=== PATIENT | female | born 1955 | race Caucasian/White ===

== ENCOUNTER 2016-11-22 08:34 | Emergency (ER) | payer BC, MEDICAID ==
[~2016-11-22] VITALS: Ht 154.9 cm; Wt 79.4 kg
[~2016-11-22 08:34] MED LIST: ALDACTONE 25MG25 MG PO; ASPIRIN CHILDRE81 M1 PO; BIOTIN2500 MCG PO; CARVEDILOL 25MG25 MG PO; CARVEDILOL6.25 M1 PO; CENTRUM SILVER1 EACH PO; CLARITIN 10MG T10 MG PO; CRANBERRY200 MG PO; DIGITEK125 MCG PO; FUROSEMIDE 20MG20 MG FT; FUROSEMIDE 20MG20 MG PO; FUROSEMIDE 40MG40 M1 PO; GABAPENTIN100 M1 PO; HYDROCHLOROTHIA25 M1 PO; IMODIUM 2MG. CAP2 MG PO; ISOSORBIDE MONO30 MG PO; JANUMET 50-1,01 EACH PO; LANOXIN 0.120.125 MG PO; LIPITOR10 MG PO; LISINOPRIL 5MG T5 MG PO; LISINOPRIL20 MG PO; LORAZEPAM0.5 MG/TAB FT; LOSARTAN POTASS50 MG PO; MAG-OX 400MG T400 MG PO; MECLIZINE25 MG PO; METOCLOPRAMIDE10 M2 PO; NATURAL FISH1200 MG PO; NITROFURANTOIN100 M4 PO; NITROGLYCERIN0.4 M1 SL; PANTOPRAZOLE SO40 M1 PO; PHENOBARBITAL32.4 M1 PO; POTASSIUM CHLO10 ME3 PO; ROPINIROLE HYDRO2 MG PO; TRAMADOL 50MG T50 M1 PO; XARELTO20 MG PO; ZOFRAN ODT4 MG PO
[2016-11-22 08:51] LABS: LYMPH # 1.6 K/mm3 (0.7-4.5); LYMPH % 18.9 % (10-50.0)
[2016-11-22 08:58] LABS: HEMOGLOBIN 11.7 g/dL (12.2-16.2)
--- NOTE | 2016-11-22 09:02 | Emergency Room Report ---
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 N Clinical Suspician of Infection? N Mental Status: 1 - Regular (Normal Baseline) Sepsis Risk:Severe Sepsis Risk Have you (or family members/close friends) recently traveled outside the [place]? N If Yes, where/when: Have you had exposure to infectious disease within the past month? TB? Other? Specify: Patient with chest pressure for the last five days, radiating to her back, nonexertional. Over the past day she has also had a slightly elevated HR, noting it to be in the low 100's yesterday morning. She was taken off Carvedilol one month ago due to "blood pressure problems". She took her morning medications at 0530 and has had aspirin in the last 24 hours. She had increased SOB last night, and reports increased pedal edema without calf pain. She is on Lasix and Aldactone. She has a hx of Afib and is on Xarelto. No new cough or fever. ALLERGIES Coded Allergies: metoclopramide (From REGLAN) (Mild, 11/22/16) Home Medications Active Scripts Rivaroxaban (Xarelto) 20 MG PO DAILY #30 TAB Ref 2 Prov: 03/18/15 Carvedilol (Carvedilol 25MG) 25 MG PO BID #60 TAB Prov: 11/30/15 Reported Medications ROPINIROLE HCL (Ropinirole) 2 MG PO QHS #30 Pantoprazole Sodium 40 MG PO BID #60 Aspirin 81 MG PO QHS Phenobarbital (Phenobarbital 32.4MG) 1 TAB PO TID #90 TAB Digoxin (Lanoxin 0.125MG) 0.125 MG PO DAILY #30 TAB Sitagliptin Phos/Metformin HCl (Janumet 50-1,000 MG Tablet) 1 TAB PO BID Losartan Potassium (Losartan 50MG) 50 MG PO DAILY #30 TAB Isosorbide Mononitrate (Isosorbide Mononitrate ER) 30 MG PO DAILY Atorvastatin Calcium (Lipitor 10MG) 10 MG PO QHS Loperamide Hcl (Loperamide) 2 MG PO Q6HP PRN DIARRHEA Gabapentin (Gabapentin 100MG) 100 MG PO TID Furosemide (Furosemide) 20 MG FT DAILY POTASSIUM CHL (Potassium Chloride) 10 MEQ PO BID LISINOPRIL (Lisinopril) 5 MG PO DAILY Loratadine (Claritin 10MG) 10 MG PO DAILY OMEGA-3S/DHA/EPA/FISH OIL (Fish Oil 1,200 MG Softgel) 1,200 MG PO BID Multivit-Min/FA/Lycopene/Lut (Centrum Silver Tablet) 1 EACH PO DAILY MAGNESIUM OXIDE (Magnesium Oxide) 250 MG PO BID Biotin 5,000 MCG PO DAILY Nitroglycerin 0.4 MG SL PRN PRN CHEST PAIN #25 History Medical History General CAD? Yes Angina: Yes [place]: No Hypertension? Yes Hyperlipidemia? No CHF? Yes DVT? No PE? No COPD? No Asthma? No Anemia? No GERD? No Gastric ulcers? No GI Bleed? No Hernia? No Thyroid Problems? No Hypothyroidism? No CVA? No Seizures? Yes Diabetes? Yes Insulin Dependent: No Insulin Pump: No Home FSBS? Yes Renal Insuffiency? No End Stage Renal Disease? No UTI? No Stones? No BPH? No GB Disease: No Nephritic Syndrome? No Asplenia? No Hepatitis? No Sickle Cell Disease? No Arthritis? No Migraines? No Cataracts? No Glaucoma? No MRSA? No HIV? No TB? No Anxiety? No Depression? No Cancer? No More? Yes Additional hx: AFIB Immunization Hx Ped.Immunizations UTD Yes DT/Tetanus Unknown Flu 2016-FSN Pneumonia Received In Past Surgical Hx Previous Surgery?Y ADENOID APPY CHOLEY TONSILECTOMY CARDIAC CATH Family History Family Hx Diabetes No CAD Yes Hypertension Yes Hyperlipidemia Yes Cancer No TB No Social History Smoking Hx Smoker: Never Smoker Tobacco: No Type N/A Packs/day N/A Are you/the child exposed to second-hand smoke: No Alcohol Alcohol: No Review of Systems All Other Systems Reviewed and Negative Respiratory see HPI Cardiovascular chest pain Physical Exam Vital Signs Vital Signs Date Time Temp Pulse Resp B/P Pulse O2 O2 Flow FiO2 Ox Delivery Rate 11/22 1004 114 22 149/94 96 11/22 0836 98.3 135 24 153/96 98 5 General Appearance normal appearance, WD/WN, no apparent distress Eye Exam - bilateral eye normal exam, bilateral eye PERRL, bilateral eye EOMI Neck normal inspection, non-tender, supple, full range of motion Respiratory Status Yes: trachea midline, chest symmetrical, non tender chest. No: respiratory distress, tender on palpation, use of accessory muscles, pain on inspiration, pain on expiration, productive cough, non productive cough. Lung Sounds bilateral: normal breath sounds, lungs clear. Cardiovascular normal exam, no gallop, no JVD, no murmur, no rub, normal peripheral pulses (irr irr;Afib on monitor) Peripheral Pulses Pulses normal Yes (irr irr; full) Gastrointestinal normal bowel sounds, normal exam, non tender, soft, no organomegaly, no pulsatile mass, no guarding, no rebound Extremities non-tender, normal range of motion, normal inspection, normal capillary refill, no calf tenderness (mild pedal edema B, nonpitting), neg Chase 's, neg ropiness Strength 5 Upper Ext (L), 5 Upper Ext (R), 5 Lower Ext (L), 5 Lower Ext (R) Neurologic alert, normal exam, no motor/sensory deficits, oriented x 3 (speech clear; no tremor) Glascow Coma Scale Glascow Coma Scale Response Value EYE response: 4 Spontaneously 4 MOTOR response: 6 OBEYS 6 VERBAL response: 5 Oriented & Converses 5 Total 15 Skin intact, normal color, warm/dry Medical Decision Making LABS/Meds/Orders Pt receiving controlled substance in ED? No [place] was queried for this patient? No Results/Orders Laboratory Tests 11/22/16 0840: Sodium 134 L, Potassium 3.4 L, Chloride 94 L, Carbon Dioxide 29, BUN 14, Creatinine 1.0, Estimated Creat Clear 75, Estimated GFR (MDRD) 57 L, Glucose 136 H, Calcium 9.8, Total Bilirubin 0.5, AST 25, ALT 39, Alkaline Phosphatase 145 H, Creatine Kinase 20 L, CK-MB (CK-2) Rel Index 2.5, CK and CKMB Interp < 0.5, Troponin I < 0.02, B-Natriuretic Peptide 308 H, Total Protein 8.2, Albumin 3.7, Globulin 4.5 H, Albumin/Globulin Ratio 0.8 L, WBC 8.4, RBC 3.56 L, Hgb 11.7 L, Hct 34.8 L, MCV 97.8, RDW 14.5, Plt Count 314, MPV 7.4, Gran % 75.1, Gran # 6.3, Lymphocytes % 18.9, Monocytes % 4.8, Eosinophils % 1.0, Basophils % 0.2, Lymphocytes # 1.6, Monocytes # 0.4, Eosinophils # 0.1, Basophils # 0.0, PUBS MCHC 33.7, MCH 32.9 H, Phenobarbital 21.7 Current Medication Orders Sig/Dashawn Start time Last Medication Dose Route Stop Time Status Admin Diltiazem HCl 120 MG ONCE ONE 11/22 1130 AC PO 11/22 1131 Sodium Chloride 10 ML PRN PRN 11/22 0845 AC IV 11/23 0842 Orders Procedure Date/time Status ELECTROCARDIOGRAM REQUEST 11/22 0843 Active IV SALINE LOCK 11/22 0843 Active PHENOBARBITOL 11/22 0843 Complete CBC WITH AUTO DIFF 11/22 0843 Complete CARDIAC ENZYMES 11/22 0843 Complete CHEM 12 PROFILE 11/22 0843 Complete BRAIN NATRIURETIC PEPTIDE 11/22 0843 Complete 12 LEAD EKG-[facility] (INITIAL) 11/22 0840 Active CM/EKG CM/EKG EKG rate, no evid. of ischemic chgs, normal QRS, normal EKG (QTc 525; Afib 100-130's), compared w/(date of old) (10/30/16 old RBBB had QTc 462) XRAY/CT/US XRAY/CT/US XRAY chest Consult Physician Consult Time Called 0939 Reason Pt. Condition, Cardiology eval/care Progress ED Progress Notes Date 11/22/16 Time 1129 Comment d/w Johnie Villarreal: diltiazem 120 mg now, d/c home, increase dilt to 300 mg total PO daily, f/u Dr. Ellis 11/27/16 at 1400. Departure Departure Time of Disposition 1129 Disposition DC Home or Self Care(routine) Clinical Impression Primary Impression: Chest pain Qualifiers: Chest pain type: other chest pain Qualified Code: R07.89 - Other chest pain Secondary Impressions: History of atrial fibrillation Condition STABLE Referrals Tru CUEVAS,Jaylen (Family) Geoffrey Ellis MD Patient Instructions DI for Atrial Fibrillation Additional Instructions Per Johnie Villarreal: increase diltiazem/Cartia to a TOTAL of 300 mg by mouth daily. You can do this by combining your 120 mg plus your 180 mg doses and take them at the same time daily. See Dr. Ellis for follow up on November 27, 2016, at two PM. Discharge Counseling Counseled pt/family regarding diagnosis, test results, medications/RX, home care, follow up needs ED Critical Care Critical Care No at [phone]
[2016-11-22 09:16] LABS: BUN 14 mg/dL (7-18)
[2016-11-22 09:17] LABS: GFR (ESTIMATED) 57 ML/MIN (59-)
--- NOTE | 2016-11-22 09:53 | RADIOLOGY REPORT PS360 ---
CHEST-PORTABLE HISTORY: Chest pain CP ORDERING PHYSICIAN: Shawnee Vasquez MD PATIENT AGE: 61 years COMPARISON: 08/15/2016 FINDINGS: There is borderline cardiomegaly without failure. There is some coarsening of the bronchovascular markings and prominence of the interstitium greater in the lung bases which has developed since a previous exam. Interstitial pneumonitis is considered. Upper lobes are clear. No acute bony anomalies. IMPRESSION: 1. Mild prominence of the interstitium and bronchovascular markings which may be seen with interstitial pneumonitis/bronchitis/viral pneumonitis
--- NOTE | 2016-11-22 12:01 | CONSULT NOTE ---
Standard Demographics Patient Demo Date of Consultation: 11/22/16 Referring Provider: Shawnee Vasquez MD Reason for Consultation: A. fib with RVR PRIMARY DIAGNOSIS: Palpitations, SOA Problem list Problem list: 1. CAD A. LHC, 03/2015, Mild to moderate non-flow limiting CAD with LVEF of 25% 2. CM with EF 25% A. Echo, 05/2015, EF 40-50% 3. Chronic A. Fib with rate control. A. On Xarelto 4. Diabetes, on meds History of present illness: History of present illness: 61-year-old white female with known nonobstructive coronary artery disease by cardiac cath 2014, chronic atrial fibrillation and history of cardiomyopathy presented to the emergency department with 2 days of increasing palpitations, decreased energy and shortness of breath with minimal activity. Upon further evaluation patient's telemetry and electrocardiogram revealed atrial fibrillation with a rapid ventricular response. Patient recently was taken off of digoxin and Coreg to see if symptoms of nausea and fatigue when improved. Patient relates no significant change in symptoms since can discontinuation of those medications. She relates she is scheduled for endoscopy early next week. She denies any fever or chills. She does have some chronic lower extremity edema. Workup in the ER revealed normal cardiac troponin with mildly elevated BN PE but no evidence of congestive heart failure on chest x-ray or on exam. Cardiology consulted for evaluation and recommendations. Past Medical History: General: Hypertension Yes CVA No Seizures Yes TB No COPD No Asthma No Diabetes Yes Insulin Dependent No Insulin Pump No Angina Yes [place] No Hyperlipidemia No Cancer No Ulcers No MRSA No GB Disease No Additional hx AFIB Past Surgical HX: Previous Surgery?Y ADENOID APPY CHOLEY TONSILECTOMY CARDIAC CATH Allergies Coded Allergies: metoclopramide (From REGLAN) (Mild, 11/22/16) Home medications: Active Scripts Rivaroxaban (Xarelto) 20 MG PO DAILY #30 TAB Ref 2 Prov: 03/18/15 Carvedilol (Carvedilol 25MG) 25 MG PO BID #60 TAB Prov: 11/30/15 Reported Medications ROPINIROLE HCL (Ropinirole) 2 MG PO QHS #30 Pantoprazole Sodium 40 MG PO BID #60 Aspirin 81 MG PO QHS Phenobarbital (Phenobarbital 32.4MG) 1 TAB PO TID #90 TAB Digoxin (Lanoxin 0.125MG) 0.125 MG PO DAILY #30 TAB Sitagliptin Phos/Metformin HCl (Janumet 50-1,000 MG Tablet) 1 TAB PO BID Losartan Potassium (Losartan 50MG) 50 MG PO DAILY #30 TAB Isosorbide Mononitrate (Isosorbide Mononitrate ER) 30 MG PO DAILY Atorvastatin Calcium (Lipitor 10MG) 10 MG PO QHS Loperamide Hcl (Loperamide) 2 MG PO Q6HP PRN DIARRHEA Gabapentin (Gabapentin 100MG) 100 MG PO TID Furosemide (Furosemide) 20 MG FT DAILY POTASSIUM CHL (Potassium Chloride) 10 MEQ PO BID LISINOPRIL (Lisinopril) 5 MG PO DAILY Loratadine (Claritin 10MG) 10 MG PO DAILY OMEGA-3S/DHA/EPA/FISH OIL (Fish Oil 1,200 MG Softgel) 1,200 MG PO BID Multivit-Min/FA/Lycopene/Lut (Centrum Silver Tablet) 1 EACH PO DAILY MAGNESIUM OXIDE (Magnesium Oxide) 250 MG PO BID Biotin 5,000 MCG PO DAILY Nitroglycerin 0.4 MG SL PRN PRN CHEST PAIN #25 Current Medications: Current Medications Potassium Chloride 40 MEQ ONCE ONE PO Potassium Chloride 40 MEQ ONCE ONE PO (CAN) Potassium Chloride 0 .STK-MED ONE PO (DC) Diltiazem HCl 0 .STK-MED ONE PO (DC) Diltiazem HCl 120 MG ONCE ONE PO (DC) Sodium Chloride 10 ML PRN PRN IV Immunization HX Ped.Immunizations UTD Yes DT/Tetanus Unknown Flu 2015-FSN Pneumonia RECEIVED IN PAST Family history Family HX Family Hx Insignificant No Diabetes No CAD Yes Hypertension Yes Hyperlipidemia Yes Cancer No TB No Social Hx: Smoking HX Tobacco No Type N/A Packs/day N/A Are you/the child exposed to second-hand smoke: No Alcohol Alcohol: No Hx of Drug Use Drug Use? No Review of systems: Constitutional weakness. Respiratory SOB with excertion. Cardiovascular palpitations Gastrointestinal/Abdominal No no symptoms reported Genitourinary No: no symptoms reported. Musculoskeletal back pain. Neurological No: no symptoms reported. Exam: Admission Vital Signs: 1ST Vital Signs Result Date Time Pulse Ox 98 11/22 0836 B/P 153/96 11/22 0836 O2 Flow Rate 5 11/22 0836 Temp 98.3 11/22 0836 Pulse 135 11/22 0836 Resp 24 11/22 0836 Last Vital Signs: Vital Signs Result Date Time Pulse Ox 96 11/22 1145 B/P 152/80 11/22 1145 Pulse 78 11/22 1145 Resp 22 11/22 1145 O2 Flow Rate 5 11/22 0836 Temp 98.3 11/22 0836 Exam General appearance: alert, awake, no acute distress Neck: no carotid bruit, no JVD Cardiovascular: irregularly irregular, tachycardia Respiratory: clear to auscultation, good air movement ABD: soft, no tenderness Extremities: patient with 1+ doughy pitting edema of the ankles bilaterally. Neuro: alert, intact, oriented Laboratory data: Laboratory Tests 11/22/16 0840: Sodium 134 L, Potassium 3.4 L, Chloride 94 L, Carbon Dioxide 29, BUN 14, Creatinine 1.0, Estimated Creat Clear 75, Estimated GFR (MDRD) 57 L, Glucose 136 H, Calcium 9.8, Total Bilirubin 0.5, AST 25, ALT 39, Alkaline Phosphatase 145 H, Creatine Kinase 20 L, CK-MB (CK-2) Rel Index 2.5, CK and CKMB Interp < 0.5, Troponin I < 0.02, B-Natriuretic Peptide 308 H, Total Protein 8.2, Albumin 3.7, Globulin 4.5 H, Albumin/Globulin Ratio 0.8 L, WBC 8.4, RBC 3.56 L, Hgb 11.7 L, Hct 34.8 L, MCV 97.8, RDW 14.5, Plt Count 314, MPV 7.4, Gran % 75.1, Gran # 6.3, Lymphocytes % 18.9, Monocytes % 4.8, Eosinophils % 1.0, Basophils % 0.2, Lymphocytes # 1.6, Monocytes # 0.4, Eosinophils # 0.1, Basophils # 0.0, PUBS MCHC 33.7, MCH 32.9 H, Phenobarbital 21.7 Plan: Assessment: 1. Palpitations and shortness of breath felt likely due to atrial fibrillation with increased ventricular response. 2. Mild hypokalemia 3. Mildly elevated BNP without evidence of congestive heart failure on chest x- ray or exam 4. Nonobstructive coronary artery disease, stable 5. Chronic atrial fibrillation 6. Diabetes mellitus 7. Nausea with endoscopy workup planned for next week Recommendations: 1. Will increase Cardizem to 300 mg daily (patient has both 120 mg capsules and 180 mg capsules at home) 2. 40 mEq of potassium to be given today times one. 3. Patient to take an additional Lasix 40 mg daily once she gets home 4. We'll see the patient back next week for follow-up. Due to her history of cardiomyopathy would prefer to put her back on Coreg but will need to monitor blood pressure on Coreg as this has been a problem in the past. 5. Okay from a cardiology standpoint to discharge home with early follow-up as indicated next week. at 1201
[2016-11-22 12:05] VITALS: BP 144/79
== END 2016-11-22 12:06 | disposition home or self-care (01) ==
LOC: ER 08:34
PROVIDERS: Emergency Medicine
DX: R07.89 Other chest pain (principal); I48.2 Chronic atrial fibrillation; Z79.899 Other long term (current) drug therapy; I25.10 Atherosclerotic heart disease of native coronary artery without angina pectoris; E11.9 Type 2 diabetes mellitus without complications; I10 Essential (primary) hypertension

== ENCOUNTER 2016-11-26 16:30 | Observation (INO) | payer BC, MEDICAID ==
[~2016-11-26] VITALS: Ht 154.9 cm; Wt 81.4 kg
[2016-11-26 16:32] VITALS: BP 147/74
[2016-11-26] MEDS ORDERED: CARTIA XT240 MG PO (16:43)
[2016-11-26] MEDS ORDERED: SPIRONOLACTONE25 MG PO (16:44)
--- NOTE | 2016-11-26 17:02 | Emergency Room Report ---
History of Present Illness Time Seen by [id number] Presenting Problem in Triage Pt arrived:Walked Presenting Problem:PT STATES SHE IS SOA, WEAK, VOMITING. STARTED 1 WEEK AGO AND WAS SEEN IN ED ON SATURDAY. 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 N Clinical Suspician of Infection? N Mental Status: 1 - Regular (Normal Baseline) Sepsis Risk:Severe Sepsis Risk Have you (or family members/close friends) recently traveled outside the [place]? N If Yes, where/when: Have you had exposure to infectious disease within the past month? TB? Other? Specify: Source patient, RN notes reviewed, family, old records Exam Limitations no limitations Comment pt with sob with ambulation and palpatation with known a fib - pt has been treated as op with no response to rx -no syncope Cardiac Chest Pain Chest pain indicative of cardiac No Timing/Duration this afternoon Severity moderate ALLERGIES Coded Allergies: metoclopramide (From REGLAN) (Mild, 11/22/16) Home Medications Active Scripts Rivaroxaban (Xarelto) 20 MG PO DAILY #30 TAB Ref 2 Prov: 03/18/15 Carvedilol (Carvedilol 25MG) 25 MG PO BID #60 TAB Prov: 11/30/15 Reported Medications ROPINIROLE HCL (Ropinirole) 2 MG PO QHS #30 Pantoprazole Sodium 40 MG PO BID #60 Aspirin 81 MG PO QHS Phenobarbital (Phenobarbital 32.4MG) 1 TAB PO TID #90 TAB Digoxin (Lanoxin 0.125MG) 0.125 MG PO DAILY #30 TAB Sitagliptin Phos/Metformin HCl (Janumet 50-1,000 MG Tablet) 1 TAB PO BID Losartan Potassium (Losartan 50MG) 50 MG PO DAILY #30 TAB Isosorbide Mononitrate (Isosorbide Mononitrate ER) 30 MG PO DAILY Atorvastatin Calcium (Lipitor 10MG) 10 MG PO QHS Loperamide Hcl (Loperamide) 2 MG PO Q6HP PRN DIARRHEA Gabapentin (Gabapentin 100MG) 100 MG PO TID Furosemide (Furosemide) 20 MG FT DAILY POTASSIUM CHL (Potassium Chloride) 10 MEQ PO BID LISINOPRIL (Lisinopril) 5 MG PO DAILY Loratadine (Claritin 10MG) 10 MG PO DAILY OMEGA-3S/DHA/EPA/FISH OIL (Fish Oil 1,200 MG Softgel) 1,200 MG PO BID Multivit-Min/FA/Lycopene/Lut (Centrum Silver Tablet) 1 EACH PO DAILY MAGNESIUM OXIDE (Magnesium Oxide) 250 MG PO BID Biotin 5,000 MCG PO DAILY Nitroglycerin 0.4 MG SL PRN PRN CHEST PAIN #25 DILTIAZEM HCL (Cartia Xt) 240 MG PO DAILY Spironolactone (Spironolactone) 50 MG NG DAILY History Medical History General CAD? Yes Angina: Yes [place]: No Hypertension? Yes Hyperlipidemia? No CHF? Yes DVT? No PE? No COPD? No Asthma? No Anemia? No GERD? No Gastric ulcers? No GI Bleed? No Hernia? No Thyroid Problems? No Hypothyroidism? No CVA? No Seizures? Yes Diabetes? Yes Insulin Dependent: No Insulin Pump: No Home FSBS? Yes Renal Insuffiency? No End Stage Renal Disease? No UTI? No Stones? No BPH? No GB Disease: No Nephritic Syndrome? No Asplenia? No Hepatitis? No Sickle Cell Disease? No Arthritis? No Migraines? No Cataracts? No Glaucoma? No MRSA? No HIV? No TB? No Anxiety? No Depression? No Cancer? No More? Yes Additional hx: AFIB Immunization Hx DT/Tetanus Unknown Flu 2015-17FSN Pneumonia Received In Past Surgical Hx Previous Surgery?Y ADENOID APPY CHOLEY TONSILECTOMY CARDIAC CATH Family History Family Hx Diabetes No CAD Yes Hypertension Yes Hyperlipidemia Yes Cancer No TB No Social History Smoking Hx Smoker: Never Smoker Tobacco: No Packs/day N/A Alcohol Alcohol: No Drugs none Review of Systems All Other Systems Reviewed and Negative Constitutional denies fever Eyes denies drainage ENT denies: ear discharge, epistaxis, throat pain. Respiratory denies cough, shortness of breath, denies wheezing Cardiovascular see HPI, chest pain, palpitations, denies syncope Gastrointestinal denies abdominal pain, denies diarrhea, denies vomiting Genitourinary denies: dysuria, frequency, hesitancy, hematuria. Musculoskeletal denies back pain, denies joint pain, denies joint swelling, denies neck pain Skin denies rash Psychiatric/Neurological denies headache, denies seizure Physical Exam Vital Signs Vital Signs Date Time Temp Pulse Resp B/P Pulse O2 O2 Flow FiO2 Ox Delivery Rate 11/26 1734 97 24 134/90 99 11/26 1632 97.5 134 24 147/74 99 - WBC >12,000 or <4,000 or 10% bands? 2 or more SIRS Criteria Met? B/P:134/90 MAP:98 Creatinine >2.0? UA output<0.5ml/kg/hr for 2 hrs? Platelet count >100,000? Lactate >2.0mmol/1? INR >1.2 or PTT > than 60 sec? Evidence of Organ Dysfunction? Provider documented clinical suspician of infection? N Sepsis Criteria Count: 2 Sepsis Risk: Severe Sepsis Risk General Appearance no apparent distress Eye Exam - bilateral eye PERRL, bilateral eye EOMI Ear, Nose, Throat normal ENT inspection Neck non-tender Respiratory Status No: respiratory distress. Lung Sounds bilateral: lungs clear. 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 No Results/Orders Laboratory Tests 11/26/16 1655: B-Natriuretic Peptide Pending 11/26/161654: Sodium 130 L, Potassium 3.9, Chloride 94 L, Carbon Dioxide 24, BUN 14, Creatinine 1.0, Estimated Creat Clear 75, Estimated GFR (MDRD) 57 L, Glucose 191 H, Calcium 9.3, Total Bilirubin 0.6, AST 25, ALT 41, Alkaline Phosphatase 132 H, Creatine Kinase 24 L, CK-MB (CK-2) Rel Index 2.1, CK and CKMB Interp < 0.5, Troponin I < 0.02, Total Protein 7.6, Albumin 3.5, Globulin 4.1 H, Albumin /Globulin Ratio 0.9 L, WBC 8.4, RBC 3.41 L, Hgb 11.1 L, Hct 33.2 L, MCV 97.5 , RDW 14.7, Plt Count 311, MPV 8.1, Gran % 76.6, Gran # 6.4, Lymphocytes % 17.7, Monocytes % 4.7, Eosinophils % 0.8, Basophils % 0.3, Lymphocytes # 1.5, Monocytes # 0.4, Eosinophils # 0.1, Basophils # 0.0, PUBS MCHC 33.5, MCH 32.6 H , Digoxin Pending Current Medication Orders Sig/Dashawn Start time Last Medication Dose Route Stop Time Status Admin Furosemide 40 MG ONCE ONE 11/26 1745 DC 11/26 IV 11/26 1746 1742 Furosemide 0 .STK-MED ONE 11/26 1740 DC .ROUTE Diltiazem HCl 10 MG ONCE ONE 11/26 1730 DC 11/26 IV 11/26 1731 1728 Diltiazem HCl 100 MG ONCE ONE 11/26 1730 AC 11/26 Sodium Chloride 100 ML IV 11/27 0329 1728 Sodium Chloride 100 ML .STK-MED ONE 11/26 1722 DC IV Diltiazem HCl 0 .STK-MED ONE 11/26 1721 DC IV Diltiazem HCl 0 .STK-MED ONE 11/26 1721 DC IV Sodium Chloride 10 ML PRN PRN 11/26 1700 AC IV 11/27 1647 Orders Procedure Date/time Status DIGOXIN 11/26 1716 Active BRAIN NATRIURETIC PEPTIDE 11/26 1716 Active ELECTROCARDIOGRAM REQUEST 11/26 1648 Active CHEST(2 VIEWS-NOT PORTABLE) 11/26 1648 Active IV SALINE LOCK 11/26 1648 Active 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 ST/Twave chgs, RBBB XRAY/CT/US XRAY/CT/US XRAY chest XR interpretation by reviewed by me Xray Results abnormal (possible chf) Departure Departure Time of Disposition 1750 Disposition Still a Patient Clinical Impression Primary Impression: Atrial fibrillation with rapid ventricular response Secondary Impressions: RBBB Condition STABLE Referrals Tru CUEVAS,Jaylen (Family) discussed with dr figueroa ED Critical Care Critical Care No at [phone]
[2016-11-26 17:07] LABS: HEMOGLOBIN 11.1 g/dL (12.2-16.2); LYMPH # 1.5 K/mm3 (0.7-4.5); LYMPH % 17.7 % (10-50.0)
[2016-11-26 17:28] LABS: BUN 14 mg/dL (7-18)
[2016-11-26 17:35] LABS: GFR (ESTIMATED) 57 ML/MIN (59-)
[2016-11-26 18:02] VITALS: BP 130/102
--- NOTE | 2016-11-26 18:56 | RADIOLOGY REPORT PS360 ---
CHEST(2 VIEWS-NOT PORTABLE) HISTORY: Shortness of air SOA ORDERING PHYSICIAN: Jaylen Ott MD PATIENT AGE: 61 years COMPARISON: 11/22/2016 FINDINGS: Borderline cardiomegaly without failure.. Previously described interstitial pneumonitis has shown improvement. There is some increased density right lower lobe suspicious for underlying pneumonia.. There is mild blunting of the posterior cusp sulci suggesting small bilateral effusions.. No acute bony abnormalities. IMPRESSION: 1. Overall improvement in the interstitial markings. 2. There is some residual density in the right lower lobe suggesting right lower lobe pneumonia probably unchanged with small bilateral effusions
[2016-11-26 19:00] VITALS: BP 148/91
[2016-11-26 19:15] VITALS: BP 148/91
[2016-11-26 20:00] VITALS: BP 143/69
[2016-11-26 22:00] VITALS: BP 119/74
[2016-11-27] VITALS (8 sets, daily range): BP systolic 99–132; BP diastolic 49–87
--- NOTE | 2016-11-27 05:42 | RADIOLOGY REPORT PS360 ---
CHEST-PORTABLE HISTORY: Chest pain ATRIAL FIB ORDERING PHYSICIAN: Jaylen Ott MD PATIENT AGE: 61 years COMPARISON: 11/26/2016 FINDINGS: Mild cardiomegaly without failure. Right lower lobe atelectasis and/or infiltrate. The remaining lungs are clear No acute bony anomalies. IMPRESSION: Cardiomegaly with right basilar atelectasis or infiltrate
[2016-11-27 06:06] LABS: HEMOGLOBIN 10.6 g/dL (12.2-16.2); LYMPH # 1.5 K/mm3 (0.7-4.5); LYMPH % 17.6 % (10-50.0)
--- NOTE | 2016-11-27 07:21 | PHARMACY CLINIC NOTE ---
Patient Demographics Patient Demographics Admission date: 11/26/16 Date: 11/27/16 Time: 0720 Allergies Coded Allergies: metoclopramide (From REGLAN) (Mild, 11/22/16) HEIGHT- FT: 5 IN: 1.00 K.391 VTE General Information Labs: Laboratory Tests 11/27 11/26 0515 1655 Hematology Hgb (12.2 - 16.2 g/dL) 10.6 L 11.1 L Hct (37.0 - 47.0 %) 31.3 L 33.2 L Plt Count (142 - 424 K/mm3) 286 311 Disclaimer The following section includes nursing documentation that has been pulled in for pharmacy review. Patient's VTE score: 3 Patient's VTE Risk: LOW RISK Clinical trial participant? No VTE prophylaxis [id number] VTE prophylaxis ordered? Yes Type of prophylaxis/treatment: FELICITA at 0721
--- NOTE | 2016-11-27 07:42 | HISTORY AND PHYSICAL REPORT ---
Demographics: Admit date: 11/26/16 Chief complaint: Shortness of breath PRIMARY DIAGNOSIS: AFIB Allergies: Coded Allergies: metoclopramide (From REGLAN) (Mild, 11/22/16) History of present illness: History of present illness: 61-year-old female who presented to the emergency department for the second time in a 5 day period with complaints of shortness of breath and chest discomfort. Patient been seen in the emergency department on November 22 after one day of shortness of breath and chest discomfort. She has known atrial fibrillation and her rate was in the low 100s. Patient had medication adjustments made and was placed on increased dose of diltiazem extended release. She had previously been on carvedilol and this had been discontinued about a month ago. Patient continued to have symptoms of shortness of breath and chest discomfort occurring in the center of the chest and radiating through to the back. She felt increasingly weak. She denies having fevers or cough. She returned to the emergency department on November 26. She was evaluated. Heart rate was in the 130s. She was admitted and placed on a Cardizem drip. His morning she continues to complain of feeling short of breath. She has known cardiomyopathy Past medical history: Family HX Family Hx Insignificant No Diabetes No CAD Yes Hypertension Yes Hyperlipidemia Yes Cancer No TB No Immunization HX DT/Tetanus Unknown Flu 2015-FSN Pneumonia Received In Past TB Test in last year No General CAD? Yes Angina: Yes NV: No Hypertension? Yes Hyperlipidemia? No CHF? Yes DVT? No PE? No COPD? No Asthma? No Anemia? No GERD? No Gastric ulcers? No GI Bleed? No Hernia? No Thyroid Problems? No Hypothyroidism? No CVA? No Seizures? Yes Diabetes? Yes Insulin Dependent: No Insulin Pump: No Home FSBS? Yes Renal Insuffiency? No UTI? No Stones? No BPH? No GB Disease: No Nephritic Syndrome? No Asplenia? No Hepatitis? No Sickle Cell Disease? No Arthritis? No Migraines? No Cataracts? No Glaucoma? No MRSA? No HIV? No TB? No Anxiety? No Depression? No Cancer? No More? Yes Additional hx: AFIB Past Surgical HX Previous Surgery?Y ADENOID APPY CHOLEY TONSILECTOMY CARDIAC CATH Current home meds: Active Scripts Rivaroxaban (Xarelto) 20 MG PO DAILY #30 TAB Ref 2 Prov: 03/18/15 Carvedilol (Carvedilol 25MG) 25 MG PO BID #60 TAB Prov: 11/30/15 Reported Medications ROPINIROLE HCL (Ropinirole) 2 MG PO QHS #30 Pantoprazole Sodium 40 MG PO BID #60 Aspirin 81 MG PO QHS Phenobarbital (Phenobarbital 32.4MG) 1 TAB PO TID #90 TAB Digoxin (Lanoxin 0.125MG) 0.125 MG PO DAILY #30 TAB Sitagliptin Phos/Metformin HCl (Janumet 50-1,000 MG Tablet) 1 TAB PO BID Losartan Potassium (Losartan 50MG) 50 MG PO DAILY #30 TAB Isosorbide Mononitrate (Isosorbide Mononitrate ER) 30 MG PO DAILY Atorvastatin Calcium (Lipitor 10MG) 10 MG PO QHS Loperamide Hcl (Loperamide) 2 MG PO Q6HP PRN DIARRHEA Gabapentin (Gabapentin 100MG) 100 MG PO TID Furosemide (Furosemide) 20 MG FT DAILY POTASSIUM CHL (Potassium Chloride) 10 MEQ PO BID LISINOPRIL (Lisinopril) 5 MG PO DAILY Loratadine (Claritin 10MG) 10 MG PO DAILY OMEGA-3S/DHA/EPA/FISH OIL (Fish Oil 1,200 MG Softgel) 1,200 MG PO BID Multivit-Min/FA/Lycopene/Lut (Centrum Silver Tablet) 1 EACH PO DAILY MAGNESIUM OXIDE (Magnesium Oxide) 250 MG PO BID Biotin 5,000 MCG PO DAILY Nitroglycerin 0.4 MG SL PRN PRN CHEST PAIN #25 DILTIAZEM HCL (Cartia Xt) 240 MG PO DAILY Spironolactone (Spironolactone) 50 MG NG DAILY Social Hx: Smoking HX Tobacco No Type Cigarettes Packs/day < 1 PACK Are you/the child exposed to second-hand smoke: No Alcohol Alcohol: No Hx of Drug Use Drug Use? No Review of systems: Constitutional weakness. No: chills, diaphoresis, fever. Respiratory shortness of breath, SOB at rest. No: cough. Cardiovascular chest pain, edema Gastrointestinal/Abdominal no symptoms reported Genitourinary no symptoms reported. Musculoskeletal no symptoms reported. Neurological Yes: no symptoms reported. Exam: Lab data for last 24 hours: Laboratory Tests 11/27/16 0515: Sodium 132 L, Potassium 3.6, Chloride 96 L, Carbon Dioxide 25, BUN 16, Creatinine 1.1 H, Estimated Creat Clear 70, Estimated GFR (MDRD) 51 L, Glucose 138 H, Calcium 8.6, WBC 8.4, RBC 3.18 L, Hgb 10.6 L, Hct 31.3 L, MCV 98.4 H , RDW 14.8, Plt Count 286, MPV 8.4, Gran % 76.3, Gran # 6.4, Lymphocytes % 17.6, Monocytes % 5.0, Eosinophils % 0.9, Basophils % 0.3, Lymphocytes # 1.5, Monocytes # 0.4, Eosinophils # 0.1, Basophils # 0.0, PUBS MCHC 34.0, MCH 33.4 H 11/27/16 0215: Creatine Kinase 17 L, CK-MB (CK-2) Rel Index 2.9, CK and CKMB Interp < 0.5, Troponin I < 0.02 11/26/16 2300: Creatine Kinase 20 L, CK-MB (CK-2) Rel Index 2.5, CK and CKMB Interp < 0.5, Troponin I < 0.02 11/26/16 1655: B-Natriuretic Peptide 264 H 11/26/16 1655: Sodium 130 L, Potassium 3.9, Chloride 94 L, Carbon Dioxide 24, BUN 14, Creatinine 1.0, Estimated Creat Clear 75, Estimated GFR (MDRD) 57 L, Glucose 191 H, Calcium 9.3, Total Bilirubin 0.6, AST 25, ALT 41, Alkaline Phosphatase 132 H, Creatine Kinase 24 L, CK-MB (CK-2) Rel Index 2.1, CK and CKMB Interp < 0.5, Troponin I < 0.02, Total Protein 7.6, Albumin 3.5, Globulin 4.1 H, Albumin /Globulin Ratio 0.9 L, WBC 8.4, RBC 3.41 L, Hgb 11.1 L, Hct 33.2 L, MCV 97.5 , RDW 14.7, Plt Count 311, MPV 8.1, Gran % 76.6, Gran # 6.4, Lymphocytes % 17.7, Monocytes % 4.7, Eosinophils % 0.8, Basophils % 0.3, Lymphocytes # 1.5, Monocytes # 0.4, Eosinophils # 0.1, Basophils # 0.0, PUBS MCHC 33.5, MCH 32.6 H , Digoxin < 0.20 L Microbiology 11/27 214 BLOOD: Anaerobic Blood Culture - RECD 11/27 214 BLOOD: Aerobic Blood Culture - RECD 11/27 214 BLOOD: Anaerobic Blood Culture - RECD 11/27 214 BLOOD: Aerobic Blood Culture - RECD Admission vital signs: 1ST Vital Signs Result Date Time Pulse Ox 99 11/26 1632 B/P 147/74 11/26 1632 Temp 97.5 11/26 1632 Pulse 134 11/26 1632 Resp 24 11/26 1632 O2 Delivery ROOM AIR 11/26 1802 O2 Flow Rate 2 11/26 2210 Additional information: She is resting comfortably in bed. HEENT exam is grossly normal. Neck is without jugular venous distention or carotid bruits. Lungs have faint crackles in the RIGHT lung base consistent with some atelectasis. Heart has an irregular rate and rhythm. Abdomen is soft. Extremities have edema of the ankles. Patient can move all extremities. Plan: Problem List 1. Atrial fibrillation with rapid ventricular response 2. Cardiomyopathy Plan: 1. Cardiology consult for medication adjustments 2. Chest x-ray has been interpreted as atelectasis versus infiltrate. Patient has received IV antibiotics. Her history doesn't really support a diagnosis of pneumonia and she has not had any infectious symptoms. Incentive spirometry will be ordered at 0742
[2016-11-27] MEDS ORDERED: CARTIA XT180 M1 PO (08:17)
--- NOTE | 2016-11-27 08:26 | CONSULT NOTE ---
Standard Demographics Patient Demo Date of Consultation: 11/27/16 Referring Provider: Jaylen Ott MD Reason for Consultation: A. fib with RVR, chest pain, SOA PRIMARY DIAGNOSIS: AFIB Problem list Problem list: 1. CAD A. [facility], 03/2015, Mild to moderate non-flow limiting CAD with LVEF of 25% B. [facility], 04/2016, Mild to moderate nonflow limiting disease. Preserved ejection fraction at 50%. Normal left ventricular end-diastolic pressure 2. Cardiomyopathy A. [facility], 05/2015, EF 40-50% B. [facility], 07/2016, Moderate biatrial enlargement, normal left ventricular size, visually estimated ejection fraction 40%, left ventricle is globally hypokinetic. Endocardial surfaces are poorly visualized. Mildly enlarged right ventricle with normal contractility. Moderate mitral and moderate tricuspid regurgitation, calculated right ventricular systolic pressure is 43 mmHg consistent with moderate pulmonary hypertension, inferior vena cava is dilated without significant inspiratory collapse. No significant pericardial effusion noted. 3. Chronic A. Fib with rate control. A. On Xarelto 4. Diabetes, on meds History of present illness: History of present illness: 61-year-old female who presented to the emergency department for the second time in a 5 day period with complaints of shortness of breath and chest discomfort. Patient been seen in the emergency department on November 22 after one day of shortness of breath and chest discomfort. She has known atrial fibrillation and her rate was in the low 100s. Patient had medication adjustments made and was placed on increased dose of diltiazem extended release. She had previously been on carvedilol and this had been discontinued about a month ago. Patient continued to have symptoms of shortness of breath and chest discomfort occurring in the center of the chest and radiating through to the back. She felt increasingly weak. She denies having fevers or cough. She returned to the emergency department on November 26. She was evaluated. Heart rate was in the 130s. She was admitted and placed on a Cardizem drip. This morning she continues to complain of feeling short of breath. She has known cardiomyopathy. The above per Dr. Ott Pt states she felt better with less fast heart rates on the carvedilol/digoxin combination. However, her blood pressure was an issue. EKG yesterday showed A. fib with Rate of 113 bpm, RBBB with QRS of <120 ms. Second EKG with rate controlled shows RBBB with QRS of 130 ms. Past Medical History: General: Hypertension Yes CVA No Seizures Yes TB No COPD No Asthma No Diabetes Yes Insulin Dependent No Insulin Pump No Angina Yes NC No Hyperlipidemia No Cancer No Ulcers No MRSA No GB Disease No Additional hx AFIB Past Surgical HX: Previous Surgery?Y ADENOID APPY CHOLEY TONSILECTOMY CARDIAC CATH Allergies Coded Allergies: metoclopramide (From REGLAN) (Mild, 11/22/16) Home medications: Active Scripts Rivaroxaban (Xarelto) 20 MG PO DAILY #30 TAB Ref 2 Prov: 03/18/15 Reported Medications ROPINIROLE HCL (Ropinirole) 2 MG PO QHS #30 Pantoprazole Sodium 40 MG PO BID #60 Aspirin 81 MG PO QHS Furosemide (Furosemide) 40 MG PO DAILY Spironolactone (Spironolactone) 50 MG PO DAILY MAGNESIUM (Magnesium) 250 MG PO BID Phenobarbital (Phenobarbital 32.4MG) 97.2 mg PO DAILY #90 TAB Sitagliptin Phos/Metformin HCl (Janumet 50-1,000 MG Tablet) 1 TAB PO BID Atorvastatin Calcium (Lipitor 10MG) 10 MG PO QHS Gabapentin (Gabapentin 100MG) 100 MG PO TID POTASSIUM CHL (Potassium Chloride) 10 MEQ PO BID Diltiazem HCl (Cartia Xt) 300 MG PO DAILY #30 OMEGA-3S/DHA/EPA/FISH OIL (Fish Oil 1,200 MG Softgel) 1,200 MG PO BID Multivit-Min/FA/Lycopene/Lut (Centrum Silver Tablet) 1 EACH PO DAILY Biotin 5,000 MCG PO DAILY Nitroglycerin 0.4 MG SL PRN PRN CHEST PAIN #25 Current Medications: Current Medications Digoxin 0.125 MG DAILY PO Isosorbide Mononitrate 30 MG DAILY PO Lisinopril 5 MG DAILY PO Spironolactone 50 MG DAILY PO Ondansetron HCl 0 .STK-MED ONE .ROUTE (DC) Azithromycin 0 .STK-MED ONE IV (DC) Sodium Chloride 250 ML .STK-MED ONE IV (DC) Sodium Chloride 100 ML .STK-MED ONE IV (DC) Ceftriaxone Sodium 0 .STK-MED ONE IV (DC) Azithromycin 500 MG ONCE ONE IV (DC) Sodium Chloride 250 ML Ceftriaxone Sodium 1 GM ONCE ONE IV (DC) Sodium Chloride 50 ML Aspirin 325 MG ONCE ONE PO (DC) Nitroglycerin 0.4 MG [id number] PRN SL Aspirin 0 .STK-MED ONE .ROUTE (DC) Nitroglycerin 0 .STK-MED ONE SL (DC) Sodium Chloride 100 ML .STK-MED ONE IV (DC) Diltiazem HCl 0 .STK-MED ONE IV (DC) Atorvastatin Calcium 10 MG QHS PO Diagnostic Test (Pha) 1 EACH W/MEALS&HS FS Gabapentin 100 MG TID PO Insulin Human [rDNA origin] SEE ADMIN CRITERIA FOR LOW INTENSITY SS W/MEALS&HS SC Pantoprazole Sodium 40 MG BID PO Phenobarbital 32.4 MG TID PO Atorvastatin Calcium 0 .STK-MED ONE PO (DC) Atorvastatin Calcium 0 .STK-MED ONE PO (DC) Diltiazem HCl 10 MG ONCE ONE IV (DC) Acetaminophen 650 MG Q4HP PRN PO Ondansetron HCl 4 MG Q6HP PRN IV Sodium Chloride 1,000 ML .Q20H IV (DC) Zolpidem Tartrate 10 MG QHSP PRN PO Furosemide 40 MG ONCE ONE IV (DC) Furosemide 0 .STK-MED ONE .ROUTE (DC) Diltiazem HCl 10 MG ONCE ONE IV (DC) Diltiazem HCl 100 MG ONCE ONE IV (DC) Sodium Chloride 100 ML Sodium Chloride 100 ML .STK-MED ONE IV (DC) Diltiazem HCl 0 .STK-MED ONE IV (DC) Diltiazem HCl 0 .STK-MED ONE IV (DC) Sodium Chloride 10 ML PRN PRN IV Immunization HX DT/Tetanus Unknown Flu [id number] Pneumonia RECEIVED IN PAST TB Test in last year No Family history Family HX Family Hx Insignificant No Diabetes No CAD Yes Hypertension Yes Hyperlipidemia Yes Cancer No TB No Social Hx: Smoking HX Tobacco No Type Cigarettes Packs/day < 1 PACK Are you/the child exposed to second-hand smoke: No Alcohol Alcohol: No Hx of Drug Use Drug Use? No Review of systems: Constitutional malaise, weakness. Respiratory see HPI, SOB with excertion. Cardiovascular see HPI, chest pain, palpitations Gastrointestinal/Abdominal nausea Genitourinary No: no symptoms reported. Musculoskeletal back pain. Neurological No: no symptoms reported. Exam: Admission Vital Signs: 1ST Vital Signs Result Date Time Pulse Ox 99 11/26 1632 B/P 147/74 11/26 1632 Temp 97.5 11/26 1632 Pulse 134 11/26 1632 Resp 24 11/26 1632 O2 Delivery ROOM AIR 11/26 1802 O2 Flow Rate 2 11/26 2210 Last Vital Signs: Vital Signs Result Date Time Pulse Ox 93 11/27 0600 B/P 113/65 11/27 0600 O2 Delivery ROOM AIR 11/27 0600 Pulse 89 11/27 0600 Resp 17 11/27 06 Temp 97.7 11/27 0443 O2 Flow Rate 2 11/27 0035 Exam General appearance: alert, awake, no acute distress Neck: no carotid bruit, no JVD Cardiovascular: irregularly irregular Respiratory: clear to auscultation, good air movement ABD: soft, no tenderness Extremities: moves all, edema Neuro: alert, intact, oriented Laboratory data: Laboratory Tests 11/27/16 0515: Sodium 132 L, Potassium 3.6, Chloride 96 L, Carbon Dioxide 25, BUN 16, Creatinine 1.1 H, Estimated Creat Clear 70, Estimated GFR (MDRD) 51 L, Glucose 138 H, Calcium 8.6, WBC 8.4, RBC 3.18 L, Hgb 10.6 L, Hct 31.3 L, MCV 98.4 H , RDW 14.8, Plt Count 286, MPV 8.4, Gran % 76.3, Gran # 6.4, Lymphocytes % 17.6, Monocytes % 5.0, Eosinophils % 0.9, Basophils % 0.3, Lymphocytes # 1.5, Monocytes # 0.4, Eosinophils # 0.1, Basophils # 0.0, PUBS MCHC 34.0, MCH 33.4 H 11/27/16 0215: Creatine Kinase 17 L, CK-MB (CK-2) Rel Index 2.9, CK and CKMB Interp < 0.5, Troponin I < 0.02 11/26/16 2300: Creatine Kinase 20 L, CK-MB (CK-2) Rel Index 2.5, CK and CKMB Interp < 0.5, Troponin I < 0.02 11/26/16 1655: B-Natriuretic Peptide 264 H 11/26/16 1655: Sodium 130 L, Potassium 3.9, Chloride 94 L, Carbon Dioxide 24, BUN 14, Creatinine 1.0, Estimated Creat Clear 75, Estimated GFR (MDRD) 57 L, Glucose 191 H, Calcium 9.3, Total Bilirubin 0.6, AST 25, ALT 41, Alkaline Phosphatase 132 H, Creatine Kinase 24 L, CK-MB (CK-2) Rel Index 2.1, CK and CKMB Interp < 0.5, Troponin I < 0.02, Total Protein 7.6, Albumin 3.5, Globulin 4.1 H, Albumin /Globulin Ratio 0.9 L, WBC 8.4, RBC 3.41 L, Hgb 11.1 L, Hct 33.2 L, MCV 97.5 , RDW 14.7, Plt Count 311, MPV 8.1, Gran % 76.6, Gran # 6.4, Lymphocytes % 17.7, Monocytes % 4.7, Eosinophils % 0.8, Basophils % 0.3, Lymphocytes # 1.5, Monocytes # 0.4, Eosinophils # 0.1, Basophils # 0.0, PUBS MCHC 33.5, MCH 32.6 H , Digoxin < 0.20 L Microbiology Date/Time Procedure - Status Source Growth 11/27 214 Anaerobic Blood Culture - RECD BLOOD 11/27 214 Aerobic Blood Culture - RECD BLOOD 11/27 214 Anaerobic Blood Culture - RECD BLOOD 11/27 214 Aerobic Blood Culture - RECD BLOOD Plan: Assessment: 1. Chronic atrial fibrillation with rapid ventricular response 2. Nonischemic cardiomyopathy 3. Nonobstructive coronary artery disease by cath April of this year 4. Mild anemia 5. Elevated BNP with suggestion of an interstitial edema and RIGHT lower lobe infiltrate on chest x-ray 6. Abnormal EKG with RBBB and prolonged QRS. Recommendations: 1. Continue spironolactone, digoxin and lisinopril. 2. Will add bisoprolol starting at 5 mg twice a day and titrate as needed. 3. We'll discontinue diltiazem drip. 4. Discussed option of AV node ablation with Bi-V Pacemaker or AICD implantation with patient and Dr. Ellis. Would prefer to see if LVEF improves on medical therapy first. at 0721
[2016-11-27] MEDS ORDERED: LEADER MAGNESIU1 TAB PO (10:24)
--- NOTE | 2016-11-27 15:07 | RADIOLOGY REPORT PS360 ---
EXAM: LUMBAR SPINE 5 VIEWS HISTORY: Fall with back pain BACK PAIN ORDERING PHYSICIAN: Jaylen Ott MD PATIENT AGE: 61 years COMPARISON: None FINDINGS: Normal alignment. No fracture or dislocation. No lytic or blastic change. The disc spaces are preserved. Mild endplate hypertrophic changes are present and there are mild facet arthritic changes at L5-S1. IMPRESSION: Mild lumbar spondylosis. No acute fracture
--- NOTE | 2016-11-27 15:10 | RADIOLOGY REPORT PS360 ---
THORACIC SPINE AP LAT-2VIEW CLINICAL INDICATION: BACK PAIN ORDERING PHYSICIAN: Jaylen Ott MD PATIENT AGE: 61 years COMPARISON: 08/15/2016 FINDINGS: No acute fracture or dislocation. No lytic or blastic change. There are scattered endplate spurs. IMPRESSION: 1. No acute fracture. 2. Mild spondylosis of the thoracic spine
[2016-11-28] VITALS (9 sets, daily range): BP systolic 90–121; BP diastolic 55–77
--- NOTE | 2016-11-28 07:50 | ACUTE CARE PROGRESS NOTE (QUA) ---
Progress Notes Subjective Date 11/28/16 Time 0749 Note Patient complains of lower extremity weakness and being severely out of breath with ambulating short distances. She is [place] this morning and admits she is extremely tired. She looks well. Heart rate is irregular. Lungs are clear. Continue to monitor after adjustments made in medications by cardiology service. I am repeating her chest x-ray today with a PA and lateral chest x-ray in regards to the infiltrate versus atelectasis in the RIGHT lung. This patient is without any infectious symptoms and has a fairly normal lung exam I doubt that she has a true bacterial pneumonia. A good PA and lateral film should help settle this issue. Objective Findings Last VS-Temp:97.9 B/P:98/56 Pulse:69 Resp:18 SaO2:97 ROOM AIR Last weight lbs:179 oz:7 K.391 Method:Bed Scales Assessment/Plan Problem List 1. Atrial fibrillation with rapid ventricular response 2. Cardiomyopathy Patient condition Stable Plan: continue current care This inpt stay is expected to cross 2 MNs from start of care Yes at 0750
--- NOTE | 2016-11-28 09:13 | ACUTE CARE PROGRESS NOTE (QUA) ---
Progress Notes Subjective Date 11/28/16 Time 09 Note 61 yo WF in bed in NAD. No chest pains or rapid HR overnight. Still with nausea which has been persistent for months. She has apt with GI in the near future. Ambulating without difficulty. Objective Findings Last VS-Temp:97.9 B/P:98/56 Pulse:69 Resp:18 SaO2:97 ROOM AIR Last weight lbs:179 oz:7 K.391 Method:Bed Scales Exam General appearance: alert, awake, no acute distress Cardiovascular: irregularly irregular Respiratory: clear to auscultation Reviewed: medications, vital signs, lab results Assessment/Plan Problem List 1. Atrial fibrillation with rapid ventricular response Assessment/Plan: Rate controlled on bisoprolol at this time. Continue anticoagulation. 2. Cardiomyopathy Assessment/Plan: Ejection fraction estimated at around 30 percent. Patient has responded well to medications in the past including Aureliano and beta blockers. Beta blockers recently discontinued earlier this year due to low blood pressure, nausea and multiple complaints of fatigue. On diltiazem the patient's cardiac function has decreased. Stressed the need to continue beta blockers along with Aureliano inhibitors , spironolactone, digoxin and diuretics. Qualifiers: Cardiomyopathy type: other Qualified Code: I42.8 - Other cardiomyopathies Patient condition Stable Plan: patient to ambulate in the hallway today. If she has no episodes of hypotension or symptomatic low blood pressure then would be okay with her due being discharged today for early follow up next week. Would plan on repeating an echocardiogram in about 3-4 weeks to assess her need for either pacemaker or automatic implantable cardiac defibrillator. Again discussed the need for possible AV node ablation with implantation of a BiV pacemaker or automatic implantable cardiac defibrillator. This inpt stay is expected to cross 2 MNs from start of care Yes at 1001
--- NOTE | 2016-11-28 11:31 | RADIOLOGY REPORT PS360 ---
CHEST(2 VIEWS-NOT PORTABLE) HISTORY: INFILTRATE VS. ATELECTASIS RLL. HAS NO INFECTIOUS SYMPTOMS ORDERING PHYSICIAN: Jaylen Ott MD PATIENT AGE: 61 years COMPARISON: 11/27/2016 FINDINGS: There is mild cardiomegaly without failure.. Patchy density once again noted in the right lung base with atelectasis and/or infiltrate. This is slightly improved. There are small bilateral pleural effusions. Upper lobes are clear. IMPRESSION: Mild cardiomegaly. Persistent but improving right basilar airspace disease Small bilateral effusions
--- NOTE | 2016-11-28 16:42 | RADIOLOGY REPORT PS360 ---
PROCEDURE: 2-D M-mode and color Doppler study INDICATIONS FOR THE TEST: Chest pain COPD Heart Murmur Tobacco Smoking Palpitations Fatigue Syncope Edema HypertensionXDiabetes MellitusX Rheumatic Fever SOBXDOE ObesityXHyperlipidemiaX Family History HD Additional History CAD, AF PATIENT INFORMATION HEIGHT: 62 WEIGHT:180 GENDER: Female B/P:93/64 2-D/M-MODE INTERPRETATION: 2-D MEASUREMENTS OBSERVED VALUES IN CMS Right Ventricular Dimension (RVDd) 3.7 Interventricular Septum (Thickness)(IVsd) 1.0 Left Ventricular Internal Dimensions(LVIDd) 5.7 Left Ventricular Posterior Wall (Thickness)(LVPWd) .9 Aortic Root 3.3 Aortic Cusp Separation 1.7 Left Atrial Dimensions (LAD) 4.5 2D 1. Left atrium is moderately enlarged, left ventricle is mildly dilated, there is severely reduced left ventricular systolic function, visually estimated ejection fraction of 20-25%, left ventricle is globally hypokinetic. 2. The right atrium is moderately enlarged, the right ventricle is moderately dilated with moderate reduction in right ventricular systolic function. 3. The aortic valve is minimally thickened and fibrosed. 4. The mitral and tricuspid valve leaflets are minimally thickened. 5. The pulmonic valve is poorly visualized. 6. Trivial pericardial effusion noted. DOPPLER INTERROGATION: Doppler interrogation of the aortic, mitral and tricuspid valvular presence of mild mitral and moderate tricuspid regurgitation, calculated right ventricular systolic pressure 47 mmHg consistent with moderate pulmonary hypertension, inferior vena cava is dilated without significant inspiratory collapse. CONCLUSION: 1. Moderate biatrial enlargement, mildly dilated left ventricle, severely reduced left ventricular systolic function, visually estimated ejection fraction of 20-25% left ventricle is globally hypokinetic. 2. Moderately enlarged right ventricle with moderate reduction in right ventricular systolic function. 3. Mild mitral and moderate tricuspid regurgitation, calculated right ventricular systolic pressure 47 mmHg consistent with moderate pulmonary hypertension, inferior vena cava is dilated without significant inspiratory collapse. 4. Trivial pericardial effusion noted.
[2016-11-28] MEDS ORDERED: BISOPROLOL 5MG T5 MG PO (21:17)
[2016-11-29 00:11] VITALS: BP 105/59
[2016-11-29 04:03] VITALS: BP 118/78
--- NOTE | 2016-11-29 07:47 | ACUTE CARE PROGRESS NOTE (QUA) ---
Progress Notes Subjective Date 11/29/16 Time 0745 Note Patient continues to have dyspnea on exertion and complains of leg weakness. She also has a new complaint of nausea at night only after receiving her nighttime medications that has occurred only while she's been hospitalized. Heart rate remains irregular. Lungs are clear. Chest x-ray shows some basilar airspace disease. Adjustments have been made to her cardiac regimen. Patient will be discharged home. I'm comfortable saying she does not have pneumonia. She will follow-up with cardiology early next week. Referral to tub rider is in her future Objective Findings Last VS-Temp:97.9 B/P:118/78 Pulse:67 Resp:18 SaO2:99 ROOM AIR Last weight lbs:179 oz:7 K.392 Method:Bed Scales Assessment/Plan Problem List 1. Atrial fibrillation with rapid ventricular response 2. Cardiomyopathy Qualifiers: Cardiomyopathy type: other Qualified Code: I42.8 - Other cardiomyopathies Patient condition Stable Plan: continue current care This inpt stay is expected to cross 2 MNs from start of care Yes at 0746
--- NOTE | 2016-11-29 07:47 | ACUTE CARE PROGRESS NOTE (QUA) ---
Progress Notes Subjective Date 11/29/16 Time 0745 Note Patient continues to have dyspnea on exertion and complains of leg weakness. She also has a new complaint of nausea at night only after receiving her nighttime medications that has occurred only while she's been hospitalized. Heart rate remains irregular. Lungs are clear. Chest x-ray shows some basilar airspace disease. Adjustments have been made to her cardiac regimen. Patient will be discharged home. I'm comfortable saying she does not have pneumonia. She will follow-up with cardiology early next week. Referral to real estate loan processor is in her future Objective Findings Last VS-Temp:97.9 B/P:118/78 Pulse:67 Resp:18 SaO2:99 ROOM AIR Last weight lbs:179 oz:7 K.392 Method:Bed Scales Assessment/Plan Problem List 1. Atrial fibrillation with rapid ventricular response 2. Cardiomyopathy Qualifiers: Cardiomyopathy type: other Qualified Code: I42.8 - Other cardiomyopathies Patient condition Stable Plan: continue current care This inpt stay is expected to cross 2 MNs from start of care Yes at 0746
--- NOTE | 2016-11-29 07:50 | Discharge Summary ---
Demographics Admit date: 11/26/16 Discharge date: 11/29/16 Discharge diagnoses Problem List 1. Atrial fibrillation with rapid ventricular response 2. Cardiomyopathy History of present illness History of present illness 61-year-old female who presented to the emergency department for the second time in a 5 day period with complaints of shortness of breath and chest discomfort. Patient been seen in the emergency department on November 22 after one day of shortness of breath and chest discomfort. She has known atrial fibrillation and her rate was in the low 100s. Patient had medication adjustments made and was placed on increased dose of diltiazem extended release. She had previously been on carvedilol and this had been discontinued about a month ago. Patient continued to have symptoms of shortness of breath and chest discomfort occurring in the center of the chest and radiating through to the back. She felt increasingly weak. She denies having fevers or cough. She returned to the emergency department on November 26. She was evaluated. Heart rate was in the 130s. She was admitted and placed on a Cardizem drip. This morning she continues to complain of feeling short of breath. She has known cardiomyopathy. The above per Dr. Ott Pt states she felt better with less fast heart rates on the carvedilol/digoxin combination. However, her blood pressure was an issue. EKG yesterday showed A. fib with Rate of 113 bpm, RBBB with QRS of <120 ms. Second EKG with rate controlled shows RBBB with QRS of 130 ms. On admission patient was placed on Cardizem drip which brought her rate under control. The following morning she was placed back on her digoxin and Cardizem was discontinued in favor bisoprolol 5 mg twice a day. Patient's hearT rate remained under control in the 70s and 80s the rest of hospitalization. Patient remains significantly short of breath with ambulation. Repeat echocardiogram showed worsening EF with ejection fraction of 30 percent. Patient's chest x-ray performed in the emergency department was question will for pneumonia despite the patient's lack of infectious symptoms. Repeat chest x-rays were performed which showed some right-sided basilar airspace disease but I do not believe this was any pneumonia. Patient will not be discharged on any antibiotics. At discharge patient's Cardizem was discontinued and she will remain on bisoprolol. She will follow-up with cardiology service early next week. Medications Medications: Discharge meds are as noted. Follow up Follow up in office in: 5 DAYS with: Geoffrey Ellis MD at 0778
[2016-11-29] MEDS ORDERED: ONDANSETRON 4MG4 MG PO (07:51)
[2016-11-29 08:30] VITALS: BP 95/60
[2016-11-29 09:00] VITALS: BP 95/60
--- NOTE | 2016-11-29 09:16 | ACUTE CARE PROGRESS NOTE (QUA) ---
Progress Notes Subjective Date 11/29/16 Time 0911 Note 61 yo WF in bed in NAD. Still with nausea and did not sleep well. States she feels bad all the time. Wants to go see the EP Tutorial Laboratory Supervisor in [place]. Explained that she would still need the medications and that we would like to see her heart function response to the meds prior to sending her. Objective Findings Last VS-Temp:97.6 B/P:95/60 Pulse:87 Resp:18 SaO2:96 ROOM AIR Last weight lbs:179 oz:7 K.392 Method:Bed Scales Exam General appearance: alert, awake, no acute distress Cardiovascular: irregularly irregular Respiratory: clear to auscultation Reviewed: medications, vital signs, lab results Assessment/Plan Problem List 1. Atrial fibrillation with rapid ventricular response Assessment/Plan: Controlled on bisoprolol and digoxin 2. Cardiomyopathy Assessment/Plan: Continue NICOLASA, BB, spironolactone, digoxin and isosorbide with lasix. Qualifiers: Cardiomyopathy type: other Qualified Code: I42.8 - Other cardiomyopathies Patient condition Stable Plan: Being discharged home today with follow up next week. Will need to check BMP at that time. Will refer to Dr. Hurt in future for consideration of AV node ablation and either BiV pacemaker or AICD depending on LVEF response to medical therapy. This inpt stay is expected to cross 2 MNs from start of care Yes at 0916
[2016-11-29 12:55] VITALS: BP 102/58
== END 2016-11-29 13:15 | disposition home or self-care (01) ==
LOC: ER 16:30 → 2ND 17:50 → ICU 18:51 → 2ND 11-27 10:16 → ICU 11-27 10:17 → 2ND 11-27 18:49
PROVIDERS: Emergency Medicine
DX: I48.91 Unspecified atrial fibrillation (principal); I42.9 Cardiomyopathy, unspecified; I10 Essential (primary) hypertension; Z72.0 Tobacco use; E11.9 Type 2 diabetes mellitus without complications
CPT/HCPCS: G0238; G0378; J0456; J2405

== ENCOUNTER 2016-12-05 07:09 | Day surgery (SDC) | payer BC, MEDICAID ==
[~2016-12-05 07:09] MED LIST changes: +BISOPROLOL 5MG T5 MG PO; +CARTIA XT180 M1 PO; +CARTIA XT240 MG PO; +LEADER MAGNESIU1 TAB PO; +ONDANSETRON 4MG4 MG PO; +SPIRONOLACTONE25 MG PO
--- NOTE | 2016-12-05 09:50 | RADIOLOGY REPORT PS360 ---
CARDIAC CATHETERIZATION DATE OF CATHETERIZATION: PROCEDURES: 1. Right heart catheterization 2. Right internal jugular vein access INDICATION FOR TEST: 1. Systolic congestive heart failure 2. Pulmonary hypertension 3. Class IV [employer] congestive heart failure Informed consent was obtained prior to the procedure. COMPLICATIONS: None ESTIMATED BLOOD LOSS: Less than 10 ml. TECHNIQUE: One percent lidocaine was used to anesthetize the right anterior aspect of the neck. A cellular tower climber needle was used to identify the right internal jugular vein. Following this a larger cannulation needle was used to cannulate the right internal jugular vein and a wire was passed into the vein. Prior to the 7 [place] sheath being inserted the wire was confirmed under fluoroscopic guidance to be in the inferior vena cava. A 7 [place] sheath was introduced and a Bryant-Dragan catheter was floated using hemodynamic waveforms in the pulmonary artery, right ventricle , and right atrium. Saturations were obtained in the pulmonary artery and the right atrium. At the end of the procedure the patient was transferred to the postop holding area in stable condition for sheath removal. HEMODYNAMICS: Right atrial pressure is 12 mm Hg. Right ventricular pressure is 30/10 mm Hg. Pulmonary arterial pressure is 25/15 mm Hg. Pulmonary artery occlusion pressure is 12 mm Hg. SATURATIONS: PA is 57 %. IMPRESSION: 1. Basically normal/euvolemic hydrostatic pressures for patient's degree of systolic congestive heart failure PLAN: 1. Patient requires additional afterload reducing medicines rather than diuretics. 2. Class IV congestive heart failure stems from low cardiac output rather than fluid overload. I recommend up titrating lisinopril. 3. Maintain current diuretic status 4. Rate control A. fib 5. Reassess ejection fraction in a few months to determine if patient is a candidate for an AICD
--- NOTE | 2016-12-05 09:50 | RADIOLOGY REPORT PS360 ---
CARDIAC CATHETERIZATION DATE OF CATHETERIZATION: PROCEDURES: 1. Right heart catheterization 2. Right internal jugular vein access INDICATION FOR TEST: 1. Systolic congestive heart failure 2. Pulmonary hypertension 3. Class IV [employer] congestive heart failure Informed consent was obtained prior to the procedure. COMPLICATIONS: None ESTIMATED BLOOD LOSS: Less than 10 ml. TECHNIQUE: One percent lidocaine was used to anesthetize the right anterior aspect of the neck. A fast food manager needle was used to identify the right internal jugular vein. Following this a larger cannulation needle was used to cannulate the right internal jugular vein and a wire was passed into the vein. Prior to the 7 [place] sheath being inserted the wire was confirmed under fluoroscopic guidance to be in the inferior vena cava. A 7 [place] sheath was introduced and a [place]-Dragan catheter was floated using hemodynamic waveforms in the pulmonary artery, right ventricle , and right atrium. Saturations were obtained in the pulmonary artery and the right atrium. At the end of the procedure the patient was transferred to the postop holding area in stable condition for sheath removal. HEMODYNAMICS: Right atrial pressure is 12 mm Hg. Right ventricular pressure is 30/10 mm Hg. Pulmonary arterial pressure is 25/15 mm Hg. Pulmonary artery occlusion pressure is 12 mm Hg. SATURATIONS: PA is 57 %. IMPRESSION: 1. Basically normal/euvolemic hydrostatic pressures for patient's degree of systolic congestive heart failure PLAN: 1. Patient requires additional afterload reducing medicines rather than diuretics. 2. Class IV congestive heart failure stems from low cardiac output rather than fluid overload. I recommend up titrating lisinopril. 3. Maintain current diuretic status 4. Rate control A. fib 5. Reassess ejection fraction in a few months to determine if patient is a candidate for an AICD
[2016-12-05 10:56] VITALS: BP 124/73
== END 2016-12-05 12:00 | disposition home or self-care (01) ==
LOC: CATHLAB 07:09
PROVIDERS: Internal Medicine
PROC: 4A023N6 Measurement of Cardiac Sampling and Pressure, Right Heart, Percutaneous Approach (ICD-10-PCS; 2016-12-05)
PROC: 02HQ32Z Insertion of Monitoring Device into Right Pulmonary Artery, Percutaneous Approach (ICD-10-PCS; principal; 2016-12-05 12:15)
DX: I50.21 Acute systolic (congestive) heart failure (principal); I27.2 Other secondary pulmonary hypertension; I10 Essential (primary) hypertension; J44.9 Chronic obstructive pulmonary disease, unspecified; I48.91 Unspecified atrial fibrillation; Z79.01 Long term (current) use of anticoagulants; I25.119 Atherosclerotic heart disease of native coronary artery with unspecified angina pectoris; I42.9 Cardiomyopathy, unspecified
CPT/HCPCS: C1894; J1644

== ENCOUNTER 2017-01-07 12:17 | Day surgery (SDC) | payer BC, MEDICAID ==
[~2017-01-07] VITALS: Ht 154.9 cm; Wt 79.4 kg
--- NOTE | 2017-01-07 14:23 | Operative Note ---
Upper GI Endoscopy Procedure date: 01/07/17 Date of : 57 Procedure:Upper GI Endoscopy Esophagogastroduodenoscopy with cold biopsies and TTS balloon dilation Indications: Mrs. Louise is a 61-year-old female who was referred for diagnostic upper endoscopy secondary to indigestion, burping and noncardiac chest pain. She does have a history of atrial fibrillation and her operator/assistant foreman (Dr. Geoffrey Ellis ) felt that her chest pain was esophageal in origin. She does have some occasional dysphagia but no globus sensation. She does have some nausea and early satiety. She is on pantoprazole for her gastroesophageal reflux disease. She does have alternating diarrhea with constipation (IBS). Performing Provider: Yazmin Kelly MD Referring Provider: Geoffrey Ellis M.D./Tammy Pandey M.D. Sedation: MAC sedation Procedure: Prior to the procedure, a history and physical exam was performed, and patients medications and allergies were reviewed. The risks and benefits of the procedure and the sedation options and risks were discussed with the patient. All questions were answered and informed consent was obtained. The patient was brought to the procedure room. Patient identification and proposed procedure were verified by the physician and the nurse. The patient was placed in a left lateral decubitus position and the scope was passed under direct vision. Throughout the procedure, the patient's blood pressure, pulse, and oxygen saturations were monitored continuously. The endoscope was introduced through the mouth, and advanced to the second part of duodenum. The upper GI endoscopy was accomplished without difficulty. The patient tolerated the procedure well. Findings: The scope was passed directly into the upper esophagus and advanced to the third portion of the duodenum. The post bulbar duodenum and duodenal bulb were normal with normal mucosa and conniventes. The scope was withdrawn through a normal duodenal bulb and pylorus into the stomach. There was minor scalloping of the folds in the first portion and bulb so biopsies were obtained from this portion of the duodenum. Within the antrum there was some mild to moderate linear erythema with bile reflux of the antrum and body. There was also some erosions within the antrum. The remainder of the antrum, body and fundus of the stomach were grossly normal. Upon retroflexion there was a small 1-2 cm hiatal hernia. 2 biopsies were taken in the antrum and along the lesser curvature for histology. The scope was then withdrawn into the esophagus. There were at least 2 tongues of salmon-colored mucosa that were biopsied to rule out intestinal metaplasia. The entire esophagus was dilated to 60 Ma[place]/20 mm with a TTS hydrostatic balloon with evidence of mild esophageal dysmotility. The remainder of the esophageal mucosa was normal. Immediate complications: None EBL (ml): 0 Impression: 1. Nonerosive gastroesophageal reflux disease with mild esophageal dysmotility/ esophageal dyskinesia and very small 1-2 cm hiatal hernia 2. 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 Chronic reactive gastritis Recommendations: I will follow up the biopsies. I do feel that the patient has functional dyspepsia and functional gastroesophageal reflux disease with esophageal dyskinesia/esophageal spasm causing her noncardiac chest pain and symptoms. We will discuss additional dietary measures and treatment options. at [id number]
[2017-01-07 16:37] VITALS: BP 112/87
== END 2017-01-07 15:30 | disposition home or self-care (01) ==
LOC: SDC 12:17
PROVIDERS: Internal Medicine Gastroenterology
PROC: 0DB78ZX Excision of Stomach, Pylorus, Via Natural or Artificial Opening Endoscopic, Diagnostic (ICD-10-PCS; 2017-01-07)
PROC: 0DB68ZX Excision of Stomach, Via Natural or Artificial Opening Endoscopic, Diagnostic (ICD-10-PCS; 2017-01-07)
PROC: 0DB58ZX Excision of Esophagus, Via Natural or Artificial Opening Endoscopic, Diagnostic (ICD-10-PCS; 2017-01-07)
PROC: 0D758ZZ Dilation of Esophagus, Via Natural or Artificial Opening Endoscopic (ICD-10-PCS; 2017-01-07)
PROC: 0DB98ZX Excision of Duodenum, Via Natural or Artificial Opening Endoscopic, Diagnostic (ICD-10-PCS; principal; 2017-01-07 13:30)
DX: K22.4 Dyskinesia of esophagus (principal); R13.10 Dysphagia, unspecified; K30 Functional dyspepsia; R07.89 Other chest pain; I48.91 Unspecified atrial fibrillation; R68.81 Early satiety; K21.9 Gastro-esophageal reflux disease without esophagitis; K58.2 Mixed irritable bowel syndrome; K44.9 Diaphragmatic hernia without obstruction or gangrene; K29.50 Unspecified chronic gastritis without bleeding; I25.10 Atherosclerotic heart disease of native coronary artery without angina pectoris; I27.20 Pulmonary hypertension, unspecified; Z79.01 Long term (current) use of anticoagulants; Z79.84 Long term (current) use of oral hypoglycemic drugs; Z79.82 Long term (current) use of aspirin; Z79.899 Other long term (current) drug therapy; K29.80 Duodenitis without bleeding
CPT/HCPCS: C1726

== ENCOUNTER → 2017-02-07 | Outpatient (CLI) | payer BC ==
--- NOTE | 2017-02-07 17:05 | RADIOLOGY REPORT PS360 ---
PROCEDURE: 2-D M-mode and color Doppler study INDICATIONS FOR THE TEST: Chest pain COPD Heart Murmur Tobacco Smoking Palpitations Fatigue Syncope Edema HypertensionXDiabetes MellitusX Rheumatic Fever SOBXDOE Obesity HyperlipidemiaX Family History HD Additional History AF PATIENT INFORMATION HEIGHT: 62 WEIGHT:175 GENDER: Female B/P:102/67 2-D/M-MODE INTERPRETATION: 2-D MEASUREMENTS OBSERVED VALUES IN CMS Right Ventricular Dimension (RVDd) 3.4 Interventricular Septum (Thickness)(IVsd) 1.0 Left Ventricular Internal Dimensions(LVIDd) 5.3 Left Ventricular Posterior Wall (Thickness)(LVPWd) .9 Aortic Root 2.6 Aortic Cusp Separation 1.4 Left Atrial Dimensions (LAD) 5.3 2D 1. Technically difficult study because of the patient's factor and poor acoustic windows 2. The left atrium is moderately enlarged, left ventricle is normal size, there is no concentric left ventricular hypertrophy, visually estimated ejection fraction of 45%, there is abnormal septal motion. 3. The right atrium and right ventricle are moderately enlarged with normal contractility. 4. The aortic valve is minimally thickened and fibrosed. 5. The mitral and tricuspid valve leaflets are minimally thickened. 6. The pulmonic valve is poorly visualized. 7. No significant pericardial effusion noted. DOPPLER INTERROGATION: Doppler interrogation of the aortic, mitral and tricuspid valve reveals presence of mild mitral and tricuspid regurgitation, calculated right ventricular systolic pressure of 37 mmHg consistent with mild pulmonary hypertension. CONCLUSION: 1. Technically difficult study because of the patient's factor and poor acoustic windows 2. Moderate biatrial enlargement, normal left ventricular size, visually estimated ejection fraction 45%, there is abnormal septal motion. 3. Moderately enlarged right ventricle with normal contractility. 4. Mild mitral and tricuspid regurgitation, calculated right ventricular systolic pressure is 37 mmHg consistent with mild primary hypertension. 5. No significant pericardial effusion noted.
== END ==
LOC: RT 12:42
DX: I42.9 Cardiomyopathy, unspecified (principal); I48.91 Unspecified atrial fibrillation; L43.9 Lichen planus, unspecified